=== PATIENT | male | born 1950 | race Caucasian/White ===

== ENCOUNTER 2024-03-03 10:48 | Inpatient (IN) ==
[2024-03-03 11:50] LABS: ABS Basophils 0.1 10^3/uL (0.0-0.1); ABS Eosinophils 0.2 10^3/uL (0.0-0.5); ABS Lymphocytes 1.4 10^3/uL (1.0-4.8); ABS Monocytes 0.7 10^3/uL (0.0-1.1); ABS Neutrophils 4.7 10^3/uL (1.5-7.6); ABS Nucleated RBC 0.01 10^3/ul; Eosinophil % 3.1 %; Hematocrit 24.8 % (38-53); Hemoglobin 8.7 g/dL (13.2-16.3); Lymphocyte % 20.1 %; Mean Corpuscular Hemoglobin 32.8 pg (27-33); Mean Corpuscular Hgb Conc 35.1 g/dL (31-36); Mean Corpuscular Volume 93.6 fL (80-97); Nucleated Red Blood Cells % 0.1 %/100WBC (0.0-0.8); Platelet Count 170 10^3/uL (150-450); Red Blood Count 2.65 10^6/uL (4.06-5.63); Red Cell Distribution Width 14.4 % (12-17); White Blood Count 7.1 10^3/uL (3.6-10.2)
[2024-03-03] MEDS: Morphine 4 MG/ML VIAL (1 ml) IV ONE (11:52)
[2024-03-03 12:06] LABS: Albumin 3.2 g/dL (3.2-5.2); Albumin/Globulin Ratio 1.4 (1-3); Calcium 7.6 mg/dL (8.6-10.3); Creatinine, Serum 0.66 mg/dL (0.67-1.17); Globulin 2.3 g/dL (2-4); Potassium 3.8 mmol/L (3.5-5.0); Total Bilirubin 0.8 mg/dL (0.2-1.0); Total Protein 5.5 g/dL (6.4-8.9); eGFR CKD-EPI 100.3 (>60)
[2024-03-03] MEDS: Iohexol 300 (CONTRAST) 10 ML SDV IV ONE (12:35)
[2024-03-03] MEDS: HYDROmorphone 1 MG/1 ML SYRINGE IV ONE (13:39)
[2024-03-03] MEDS: Buprenorp/Nalox 4-1 MG FILM SL SCH (16:24)
[2024-03-03] MEDS: Enoxaparin 40 MG/0.4 ML SYR SUBCUT SCH (16:25)
[2024-03-03] MEDS: Albuterol HFA INHALER 8 gm MDI INH PRN (18:00)
[2024-03-03] MEDS: Mometasone/Formoter 200/5 MDI INH SCH (20:28)
[2024-03-03] MEDS: IPRATROPIUM INH SCH (20:29)
[2024-03-03] MEDS: Nicotine PATCH 21 MG/24 HR PATCH TRANSDERM SCH (22:47)
[2024-03-04] MEDS: Cholecalciferol (VIT D3) 1,000 unit TAB PO SCH (08:08)
[2024-03-04 11:47] LABS: ABS Basophils 0.1 10^3/uL (0.0-0.1); ABS Eosinophils 0.6 10^3/uL (0.0-0.5); ABS Lymphocytes 2.4 10^3/uL (1.0-4.8); ABS Monocytes 0.9 10^3/uL (0.0-1.1); ABS Neutrophils 4.1 10^3/uL (1.5-7.6); Eosinophil % 7.4 %; Hematocrit 27.4 % (38-53); Hemoglobin 9.5 g/dL (13.2-16.3); Lymphocyte % 29.9 %; Mean Corpuscular Hemoglobin 32.4 pg (27-33); Mean Corpuscular Hgb Conc 34.5 g/dL (31-36); Mean Corpuscular Volume 93.9 fL (80-97); Mean Platelet Volume 9.3 fL (7.5-11.2); Platelet Count 202 10^3/uL (150-450); Red Blood Count 2.92 10^6/uL (4.06-5.63); Red Cell Distribution Width 14.5 % (12-17)
[2024-03-05] MEDS: Morphine 2 MG/ML SYRINGE IV ONE (03:10)
[2024-03-05 06:30] LABS: Hematocrit 25.8 % (38-53); Mean Corpuscular Hemoglobin 32.9 pg (27-33); Mean Corpuscular Hgb Conc 34.8 g/dL (31-36); Mean Corpuscular Volume 94.5 fL (80-97); Mean Platelet Volume 8.9 fL (7.5-11.2); Platelet Count 211 10^3/uL (150-450); Red Blood Count 2.73 10^6/uL (4.06-5.63); Red Cell Distribution Width 14.6 % (12-17); White Blood Count 8.2 10^3/uL (3.6-10.2)
[2024-03-05 06:50] LABS: Albumin 3.1 g/dL (3.2-5.2); Albumin/Globulin Ratio 1.3 (1-3); Creatinine, Serum 0.57 mg/dL (0.67-1.17); Globulin 2.4 g/dL (2-4); Potassium 4.6 mmol/L (3.5-5.0); Total Bilirubin 0.7 mg/dL (0.2-1.0); Total Protein 5.5 g/dL (6.4-8.9); eGFR CKD-EPI 104.8 (>60)
[2024-03-05] MEDS: HYDROmorphone 1 MG/1 ML SYRINGE IV SLOW PU PRN (11:49)
[2024-03-05] MEDS ORDERED: fentaNYL 100 mcg/2 ml 50 MCG/ML VIAL ONE (15:44)
[2024-03-05] MEDS ORDERED: Propofol 10 MG/ML 20 ML BTL ONE (15:44)
[2024-03-05] MEDS ORDERED: ceFAZolin 2 GM PREMIX 2 GM/50 ML BAG ONE (15:46)
[2024-03-05] MEDS ORDERED: Phenylephrine 40 mcg/mL 10mL (400mcg) SYRINGE ONE (15:56)
[2024-03-05] MEDS ORDERED: Dexamethasone IV 4 MG/ML VIAL 1 ml VIAL ONE (16:30)
[2024-03-05] MEDS ORDERED: Ondansetron 4 mg VIAL 2 MG/ML 2 ml VIAL ONE (16:46)
[2024-03-05] MEDS ORDERED: HYDROmorphone 1 MG/1 ML SYRINGE IV PRN (17:31)
[2024-03-05] MEDS ORDERED: Naloxone 0.4 mg VIAL 0.4 mg/ml 1 ml VIAL IV PRN (17:31)
[2024-03-05 17:55] LABS: Hematocrit 27.3 % (38-53); Hemoglobin 9.4 g/dL (13.2-16.3)
[2024-03-05] MEDS: Enoxaparin 40 MG/0.4 ML SYR SUBCUT SCH (18:20)
[2024-03-05] MEDS: Lactated Ringers 1000 ml BAG 1,000 ML IV SCH (18:39)
[2024-03-05] MEDS: Acetaminophen IV 1 GM/100ML 1,000 MG/100 ML BAG IV PRN (21:08)
[2024-03-06] MEDS: ceFAZolin 2 GM PREMIX 2 GM/50 ML BAG IV SCH (00:02)
[2024-03-06 06:34] LABS: ABS Lymphocytes 0.9 10^3/uL (1.0-4.8); ABS Monocytes 0.6 10^3/uL (0.0-1.1); ABS Neutrophils 7.5 10^3/uL (1.5-7.6); Hematocrit 26.5 % (38-53); Hemoglobin 9.2 g/dL (13.2-16.3); Lymphocyte % 10.1 %; Mean Corpuscular Hgb Conc 34.9 g/dL (31-36); Mean Corpuscular Volume 94.7 fL (80-97); Mean Platelet Volume 8.7 fL (7.5-11.2); Platelet Count 262 10^3/uL (150-450); Red Cell Distribution Width 14.3 % (12-17)
[2024-03-06 06:52] LABS: Albumin 3.4 g/dL (3.2-5.2); Albumin/Globulin Ratio 1.3 (1-3); Calcium 8.2 mg/dL (8.6-10.3); Creatinine, Serum 0.6 mg/dL (0.67-1.17); Globulin 2.6 g/dL (2-4); Potassium 5.2 mmol/L (3.5-5.0); Total Bilirubin 0.6 mg/dL (0.2-1.0); eGFR CKD-EPI 103.2 (>60)
[2024-03-06] MEDS: Enoxaparin 40 MG/0.4 ML SYR SUBCUT SCH (12:59)
[2024-03-06] MEDS: Senna TAB 8.6 mg TAB PO PRN (21:50)
[2024-03-06] MEDS: Nicotine PATCH 21 MG/24 HR PATCH TRANSDERM SCH (21:53)
[2024-03-07] MEDS: Lactulose 30 ml UDC PO PRN (13:02)
[2024-03-08 06:39] LABS: Calcium 7.8 mg/dL (8.6-10.3); Creatinine, Serum 0.65 mg/dL (0.67-1.17); Potassium 4.7 mmol/L (3.5-5.0); eGFR CKD-EPI 100.7 (>60)
[2024-03-08 07:26] LABS: ABS Basophils 0.1 10^3/uL (0.0-0.1); ABS Eosinophils 0.3 10^3/uL (0.0-0.5); ABS Lymphocytes 2.1 10^3/uL (1.0-4.8); ABS Monocytes 1.1 10^3/uL (0.0-1.1); ABS Neutrophils 4.8 10^3/uL (1.5-7.6); Eosinophil % 4.2 %; Hemoglobin 7.9 g/dL (13.2-16.3); Lymphocyte % 24.8 %; Mean Corpuscular Hemoglobin 33.1 pg (27-33); Mean Corpuscular Hgb Conc 34.4 g/dL (31-36); Mean Corpuscular Volume 96.2 fL (80-97); Mean Platelet Volume 9.3 fL (7.5-11.2); Platelet Count 233 10^3/uL (150-450); White Blood Count 8.3 10^3/uL (3.6-10.2)
[2024-03-08 07:43] LABS: Albumin 2.8 g/dL (3.2-5.2); Albumin/Globulin Ratio 1.3 (1-3); Globulin 2.1 g/dL (2-4); Total Bilirubin 0.5 mg/dL (0.2-1.0); Total Protein 4.9 g/dL (6.4-8.9)
[2024-03-08 13:55] LABS: Urine Appearance No Cx Clear (Clear); Urine Bilirubin No Culture Negative (Negative); Urine Blood No Culture Negative (Negative); Urine Color No Culture Yellow; Urine Glucose No Culture Negative (Negative); Urine Ketones No Culture Negative (Negative); Urine Leukocytes No Culture Negative Leu/uL (Negative); Urine Nitrite No Culture Negative (Negative); Urine Protein No Culture Negative (Negative); Urine Specific Gravity No Cx 1.023 (1.002-1.030); Urine Urobilinogen No Cx Negative (Negative); Urine pH No Culture 5.5 (5.0-8.0)
[2024-03-08 13:56] LABS: Urine Bacteria No Culture Absent /HPF (Absent); Urine Red Blood Cell No Cult Trace(0-2/hpf) /HPF (0-Trace); Urine White Blood Cell No Cult Trace(0-5/hpf) /HPF (0-Trace)
[2024-03-08 14:19] LABS: C Reactive Protein 53.7 mg/L (<8.01)
[2024-03-08] MEDS: Sodium Phosphate ADULT ENEMA 133 ML BTL PR ONE (14:46)
[2024-03-09 06:10] LABS: ABS Basophils 0.1 10^3/uL (0.0-0.1); ABS Eosinophils 0.3 10^3/uL (0.0-0.5); ABS Lymphocytes 1.8 10^3/uL (1.0-4.8); ABS Monocytes 0.8 10^3/uL (0.0-1.1); ABS Neutrophils 3.9 10^3/uL (1.5-7.6); Eosinophil % 4.8 %; Hematocrit 22.7 % (38-53); Hemoglobin 7.9 g/dL (13.2-16.3); Lymphocyte % 26.6 %; Mean Corpuscular Hemoglobin 33.3 pg (27-33); Mean Corpuscular Hgb Conc 34.9 g/dL (31-36); Mean Corpuscular Volume 95.3 fL (80-97); Mean Platelet Volume 8.9 fL (7.5-11.2); Platelet Count 236 10^3/uL (150-450); Red Blood Count 2.38 10^6/uL (4.06-5.63); Red Cell Distribution Width 15.8 % (12-17)
[2024-03-09 06:31] LABS: C Reactive Protein 62.95 mg/L (<8.01); Calcium 7.7 mg/dL (8.6-10.3); Creatinine, Serum 0.67 mg/dL (0.67-1.17); Potassium 4.3 mmol/L (3.5-5.0); eGFR CKD-EPI 99.8 (>60)
[2024-03-09] MEDS: Magnesium Sulfate 2 gm BAG 2 GM/50 ML BAG IVPB ONE (15:17)
[2024-03-10 05:36] LABS: ABS Eosinophils 0.3 10^3/uL (0.0-0.5); ABS Lymphocytes 1.5 10^3/uL (1.0-4.8); ABS Monocytes 0.8 10^3/uL (0.0-1.1); ABS Neutrophils 3.5 10^3/uL (1.5-7.6); Eosinophil % 5.1 %; Hematocrit 22.2 % (38-53); Hemoglobin 7.6 g/dL (13.2-16.3); Lymphocyte % 23.8 %; Mean Corpuscular Hemoglobin 32.8 pg (27-33); Mean Corpuscular Hgb Conc 34.4 g/dL (31-36); Mean Corpuscular Volume 95.4 fL (80-97); Mean Platelet Volume 9.2 fL (7.5-11.2); Platelet Count 245 10^3/uL (150-450); Red Blood Count 2.33 10^6/uL (4.06-5.63); Red Cell Distribution Width 16.3 % (12-17); White Blood Count 6.1 10^3/uL (3.6-10.2)
[2024-03-10 06:14] LABS: Calcium 7.6 mg/dL (8.6-10.3); Creatinine, Serum 0.68 mg/dL (0.67-1.17); Potassium 4.5 mmol/L (3.5-5.0); eGFR CKD-EPI 99.4 (>60)
[2024-03-10] MEDS: Amoxicillin/Clavul 875/125 TAB (Augmentin 875 tab) PO SCH (08:29)
[2024-03-10 09:20] LABS: C Reactive Protein 50.35 mg/L (<8.01)
[2024-03-10 09:43] LABS: Ferritin 94.5 ng/mL (24-336)
[2024-03-10 09:47] LABS: Folate 17.58 ng/mL (5.90-24.80)
[2024-03-10 10:35] VITALS: BP 99/60
[2024-03-10] MEDS: Cyanocobalamin INJ 1,000 MCG/ML VIAL 1 ML VIAL IM ONE (11:15)
== END 2024-03-10 13:33 | DRG 308 ==
LOC: EDHOLD 10:48 → ED 10:48 → SSU 14:58 → SUATTDRO 03-05 14:09
PROVIDERS: ADMIT Internal Medicine; ATTEND Internal Medicine